=== PATIENT | female | born 1970 | race Two or more races ===

== ENCOUNTER 2018-10-18 09:43 | Day surgery (SDC) | payer OTHER ==
[2018-10-18] VITALS (11 sets, daily range): BP systolic 100–141; BP diastolic 69–90
[~2018-10-18] VITALS: Ht 160 cm; Wt 81.6 kg
[~2018-10-18 09:43] MED LIST: IBUPROFEN600 MG ORAL; ceFAZolin 1gm IVPB IVPB ONE; celeBREX 200mg Cap **SURGERY PATIENTS ONLY ORAL ONE; oxyCONTIN 20mg tab ORAL ONE
[2018-10-18] MEDS ORDERED: celeBREX 200mg Cap **SURGERY PATIENTS ONLY ORAL ONE (11:15)
[2018-10-18] MEDS ORDERED: oxyCONTIN 20mg tab ORAL ONE (11:15)
[2018-10-18] MEDS ORDERED: EPINEPHrine 1mg/1ml Amp ONE (12:22)
[2018-10-18] MEDS ORDERED: Ropivacaine 5mg/ml Vial 30ml INJ ONE ×2 (12:23→14:06)
[2018-10-18] MEDS ORDERED: Bupivacaine w/Epi 0.5% 30ml Vial INJ ONE (12:23)
[2018-10-18] MEDS ORDERED: Bupivacaine 0.25% Inj 30ml INJ ONE (13:03)
[2018-10-18] MEDS ORDERED: Kenalog-40 1ml Vial ONE (13:03)
[2018-10-18] MEDS ORDERED: Ketorolac 30mg Inj ONE (13:03)
[2018-10-18] MEDS ORDERED: Midazolam 2mg/2ml Inj ONE (13:15)
[2018-10-18] MEDS ORDERED: fentaNYL 100 mcg/2 mL IV ONE (13:18)
[2018-10-18] MEDS ORDERED: DiphenhydrAMINE 50mg/ml Inj ONE (13:41)
--- NOTE | 2018-10-18 13:47 | Pre-Procedure Note/Attestation ---
Pre-Procedure Note/Attestation Complete Prior to Procedure Planned Procedure: left Procedure Narrative: shoulder arthroscopy, sad Indications for Procedure Pre-Operative Diagnosis: left shoulder impingement Attestation I attest that I discussed the nature of the procedure; its benefits; risks and complications; and alternatives (and the risks and benefits of such alternatives ), prior to the procedure, with the patient (or the patient's legal office machines sales representative). I attest that, if there was a reasonable possibility of needing a blood transfusion, the patient (or the patient's legal office machines sales representative) was given the [facility] standardized written summary, pursuant to the Emil Nigel Blood Safety Act ([place] Health and Safety Code # 1645, as amended). I attest that I re-evaluated the patient just prior to the surgery and that there has been no change in the patient's H&P, except as documented below: Baltazar Colby MD Oct 18, 2018 13:47
--- NOTE | 2018-10-18 13:48 | Operative Note - PDOC ---
Operative Note Operative Note Pre-op Diagnosis: left shoulder impingement Procedure: see op report Post-op Diagnosis: same as pre-op plus Operative Findings: consistent w/pre-op dx studies Anesthesia: regional Specimen: none Complications: none Condition: stable Estimated Blood Loss: none Implant(s) used?: No Baltazra Colby MD Oct 18, 2018 13:48
[2018-10-18] MEDS ORDERED: HYDROmorphone 1mg/ml Carpuject SUBQ PRN (14:00)
[2018-10-18] MEDS ORDERED: D5 1/2NS 1,000 ML IV SCH (14:00)
[2018-10-18] MEDS ORDERED: Tylenol #3 tab (300mg/30mg) ORAL PRN (14:00)
[2018-10-18] MEDS ORDERED: HYDROcodone/Acetamin 5/325 tab ORAL PRN (14:00)
[2018-10-18] MEDS ORDERED: Lidocaine 1% Plain 30 ml INJ ONE (14:06)
[2018-10-18] MEDS ORDERED: Glycopyrrolate 0.2mg/ml 1ml Vial ONE (14:07)
[2018-10-18] MEDS ORDERED: Metoclopramide 10mg/2ml Inj ONE (14:07)
[2018-10-18] MEDS ORDERED: Propofol 200mg/20ml IV ONE (14:07)
[2018-10-18] MEDS ORDERED: Neostigmine 1mg/ml 10ml Inj ONE (14:07)
[2018-10-18] MEDS ORDERED: Metoclopramide 10mg/2ml Inj IVP PRN (14:15)
[2018-10-18] MEDS ORDERED: Acetaminophen (Non formulary) 100 ML IV ONE (14:15)
[2018-10-18] MEDS ORDERED: fentaNYL 100 mcg/2 mL IV PRN (14:15)
[2018-10-18] MEDS ORDERED: NS Irrig 4000ml IRRIG ONE (14:59)
--- NOTE | 2018-10-18 15:11 | Immediate Post-Op Evaluation ---
Immediate Post-Op Evalulation Immediate Post-Op Evalulation Procedure: left shoulder arthroscopy and SAD Date of Evaluation: Oct 18, 2018 Time of Evaluation: 15:00 IV Fluids: 800 Blood Pressure Systolic: 141 Blood Pressure Diastolic: 81 Pulse Rate: 72 Respiratory Rate: 14 O2 Sat by Pulse Oximetry: 100 Temperature (Fahrenheit): 98.0 Pain Score (1-10): 0 Nausea: No Vomiting: No Complications none Patient Status: reacts, patent Hydration Status: adequate Drug: ancef Given Within 1 Hr of Incision: Yes Mag Rae CRNA Oct 18, 2018 15:11
--- NOTE | 2018-10-18 15:14 | Anethesia Preoperative Eval ---
Anesthesia Pre-op PMH/ROS General Date of Evaluation: Oct 18, 2018 Time of Evaluation: 13:00 Anesthesiologist: francisco javier ASA Score: ASA 1 Mallampati Score Class I : Soft palate, uvula, fauces, pillars visible Class II: Soft palate, uvula, fauces visible Class III: Soft palate, base of uvula visible Class IV: Only hard plate visible Mallampati Classification: Class II Surgeon: mimi Diagnosis: shoulder pain Surgical Procedure: left shoulder arthroscopy Anesthesia History: none Family History: no anesthesia problems Allergies: Coded Allergies: No Known Allergies (Unverified , 10/17/18) Medications: see eMAR Patient NPO?: Yes NPO Date: Oct 18, 2018 NPO Time: 00:01 Past Medical History Cardiovascular: Denies: HTN, CAD, NM, valve dz, arrhythmia, other Pulmonary: Denies: asthma, COPD, ANA, other Gastrointestinal/Genitourinary: Denies: GERD, CRI, ESRD, other Neurologic/Psychiatric: Denies: dementia, CVA, depression/anxiety, TIA, other Endocrine: Denies: DM, hypothyroidism, steroids, other HEENT: Denies: cataract (L), cataract (R), glaucoma, [place] [place] (L), [place] [place] (R), other Hematology/Immune: Denies: anemia, DVT, bleeding disorder, other Musculoskeletal/Integumentary: Denies: OA, RA, DJD, DDD, edema, other PSxH Narrative: tubal ligation Anesthesia Pre-op Phys. Exam Physician Exam Last Vital Signs Date Time Temp Pulse Resp B/P (MAP) Pulse Ox O2 Delivery O2 Flow Rate FiO2 10/18/18 15:05 69 17 141/81 100 Simple Mask 6.0 10/18/18 14:55 98.0 Constitutional: NAD Neurologic: CN 2-12 intact Cardiovascular: RRR Respiratory: CTA Gastrointestinal: S/NT/ND Airway Exam Mallampati Classification 2 Mallampati Score: Class II Neck: normal TMD: 3 ROM: full Dentures: no upper, no lower JazzriMag chiang CRNA Oct 18, 2018 15:14
--- NOTE | 2018-10-18 17:00 | NUR ---
AWAKE, ALERT. NO C/O SEVERE PAIN OR DISCOMFORTS AT THIS TIME, DISCHARGE INSTRUCTION GIVEN AND EXPLAINED, PATIENT WENT HOME WITH FAMILY IN STABLE CONDITION, ALL NEEDS ATTENDED.
--- NOTE | 2018-10-18 23:30 | Operative Note - Dictated ---
DATE OF OPERATION: 10/18/2018 PREOPERATIVE DIAGNOSES: 1. Left shoulder rotator cuff tear. 2. Left shoulder adhesive capsulitis. 3. Impingement syndrome. 4. Superior labral tear. POSTOPERATIVE DIAGNOSES: 1. Left shoulder rotator cuff tear. 2. Left shoulder adhesive capsulitis. 3. Impingement syndrome. 4. Superior labral tear. PROCEDURE: 1. Left shoulder arthroscopy, release of the rotator interval as well as posterior capsule. 2. Left shoulder subacromial decompression, bursectomy, release CA ligament. 3. Left shoulder arthroscopy and SLAP debridement/repair. INDICATION FOR PROCEDURE: The patient is a pleasant 48-year-old female with progressive left shoulder pain. She had MRI, which showed concern for rotator cuff tear. She also had pretty significant restricted range of motion. Therefore, after failing conservative treatment to the left shoulder, arthroscopic subacromial decompression with concurrent rotator cuff repair with possible capsular release, both anterior and posterior. Risks, limitations, expectations, and complications of the procedure were discussed in detail. All questions were addressed. DESCRIPTION OF PROCEDURE: After informed consent was obtained, the patient was brought to the operating room. The patient was placed under interscalene with general anesthesia. The patient was then carefully placed in beach-chair position. Left shoulder was prepped and draped in sterile manner. Time-out was performed. A posterolateral stab incision made. Trocar was introduced into the glenohumeral joint. There is significant erythema. Extensive rotator interval in biceps tendon and anterior labrum. Medial working portal was established and the rotator interval was released to allow for distention of the joint. The superior labrum was noted to have a small superior labral tear. Once the superior labral tear was addressed, the anchor along the glenoid was assessed, it was intact with negative peel back test. The biceps tendon was followed and bicipital tuberosity was intact. The articular side of the rotator cuff was intact. At this point, the viewing portal was switched into the anterior portal and the posterior capsule release was then performed using Arthro[employer]. Once adequate release of the posterior capsule was performed, the camera was placed in the subacromial space and the hypertrophic bursal tissue was removed along with the significant adhesions. Lateral working portal was established. The undersurface of the acromion was identified. Acromioplasty was started from lateral to medial and completed from posterior to anterior. Once that was done, the bursectomy was completed. Once that was done, the instruments were removed. Portal sites were closed with 3-0 Monocryl sutures. Steri-Strips and a sterile dressing were applied. The patient was awoken and taken to recovery room with stable vital signs. ESTIMATED BLOOD LOSS: None. COMPLICATIONS: None. SPECIMENS: None. IMPLANTS: None. Baltazar Colby M.D. DR: CHANTAL JOB#: [id number] CC: KELLEE
== END 2018-10-18 17:00 | disposition home or self-care (01) ==
LOC: SUR 09:43
DX: M75.102 Unspecified rotator cuff tear or rupture of left shoulder, not specified as traumatic (principal); M75.02 Adhesive capsulitis of left shoulder; M75.42 Impingement syndrome of left shoulder; S43.432A Superior glenoid labrum lesion of left shoulder, initial encounter
CPT/HCPCS: 29822; 29826; J0171; J0690; J1200; J1885; J2250; J2405; J2704; J2710; J2765; J2795; J3010; J3301; J3490; 94003; 94150